=== PATIENT | male | born 1945 | race Caucasian/White ===

== ENCOUNTER 2021-11-21 11:00 | Outpatient (RCR) | payer BC, SELFPAY ==
[2021-11-19 15:35] VITALS: PULSE 85
== END 2022-02-28 07:44 | disposition home or self-care (01) ==
LOC: ANHCPREHAB 11:00
PROVIDERS: PCP Psychiatry & Neurology Neurology
DX: Z95.2 Presence of prosthetic heart valve (principal)
CPT/HCPCS: 93798

== ENCOUNTER 2022-07-17 08:30 | Outpatient (RCR) | payer BC, SELFPAY ==
[2022-04-25 11:28] VITALS: PULSE 85
== END 2022-07-17 08:51 | disposition home or self-care (01) ==
LOC: ANHCPREHAB 08:30
PROVIDERS: PCP Psychiatry & Neurology Neurology
DX: Z95.2 Presence of prosthetic heart valve (principal)
CPT/HCPCS: 93798

== ENCOUNTER 2023-04-30 08:30 | Outpatient (RCR) | payer BC, SELFPAY ==
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
--- NOTE | 2023-03-12 09:28 | OPREHPOC ---
Outpatient Therapy Plan of Care This is a Multidisciplinary Plan of Care that may contain components documented by all disciplines (PT, OT, and ST.) PT Problem 1 PT Problem #1 Knowledge Deficit PT Goal 1 Goal Pt. will be independent with a HEP addressing l.e. strength Target Visit 2 PT Problem 2 PT Problem #2 Impaired Balance PT Goal 1 Goal Pt. will improve tinetti score to 19 or greater indicating improved safety. Target Visit 12 PT Problem 3 PT Problem #3 Impaired Gait PT Goal 1 Goal Pt. will ambulate indeepndently over level surface without an AD for 6 minutes over a distance of 600' or greater. Target Visit 12 PT Problem 4 PT Problem #4 Impaired Functional Mobil PT Goal 1 Goal Pt. will be able to maintain standing on airex foam for 2 minutes without LOB or handhold indicating improve somatosensory condition for safety with IADL's. Target Visit 12
--- NOTE | 2023-04-01 11:58 | PTOPEVAL1 ---
Assessment and note entered by [facility] Evaluation Information Assessment Status Progress Diagnosis imbalance Onset 07/24/22 Subjective Information Pt. reports that he is doing much better. he notices that he is more stable on his feet. He states that he was able to walk through the grocery store yesterday, which had been difficult for him in the past. he notices that he still has trouble with described low light situations, especially if he has to get up in the middle of the night. Reported Pain Level Pain Score 0: Self Report Assessment PT Clinical Summary Pt. has attended a total of 9 treatment sessions. In this time he has demonstrated improvement in his endurance, strength, functional mobility and balance. Despite these improvements the pt. continues to present with high fall risk and gait impairments. Continued skilled PT is indicated in order to improve these areas to allow for improved safety and efficiency with IADL performance. Plan of Care Interventions Gait Training,Manual Therapy,Neuro Re-education, Patient/Caregiver Educati,Therapeutic Activities, Therapeutic Exercise PT Services Indicated Yes Treatment Frequency and Continue skilled PT focusing on improving balance, Duration strength and endurance 3x/week x 3 weeks. These treatments will address the objective and functional deficits as defined above. The patient will be advanced safely and appropriately in order for the patient to progress towards his/her prior level of function. Additional exercises will be introduced and as well as a comprehensive home exercise program upon discharge, if needed, ?to ensure carryover of functional gains achieved in the clinic. This treatment plan has been reviewed and agreement upon by the patient.
--- NOTE | 2023-04-01 12:00 | OPREHPOC ---
Outpatient Therapy Plan of Care This is a Multidisciplinary Plan of Care that may contain components documented by all disciplines (PT, OT, and ST.) PT Problem 1 PT Problem #1 Knowledge Deficit PT Goal 1 Goal Pt. will be independent with a HEP addressing l.e. strength Target Visit 2 Progress Met PT Problem 2 PT Problem #2 Impaired Balance PT Goal 1 Goal Pt. will improve tinetti score to 19 or greater indicating improved safety. Target Visit 12 Progress Not Met PT Problem 3 PT Problem #3 Impaired Gait PT Goal 1 Goal Pt. will ambulate indeepndently over level surface without an AD for 6 minutes over a distance of 600' or greater. Target Visit 12 Progress Partially Met Comment Pt. continues to demonstrate occasional loss of balance requiring min assist when going without the assistive device indicating need for cga without an assistive device. PT Problem 4 PT Problem #4 Impaired Functional Mobil PT Goal 1 Goal Pt. will be able to maintain standing on airex foam for 2 minutes without LOB or handhold indicating improve somatosensory condition for safety with IADL's. Target Visit 12 Progress Not Met Comment progressing towards
--- NOTE | 2023-04-30 09:58 | PTOPEVAL1 ---
Assessment and note entered by [facility] Evaluation Information Assessment Status Progress Diagnosis imbalance Onset 07/24/22 Subjective Information Pt. reports that he is continuing to get better. he denies any recent falls. He still notes that he feels unsteady without his AD. He states that he noticed he was able to walk through the grocery store, but still needs to hold onto the cart. he would like to continue to discontinue use of his walker and be able to complete steps more safely. Reported Pain Level Pain Score 0: Self Report Assessment PT Clinical Summary Mr. Sparrow has currently attended at toal of 18 treatments sessions. He demonstrates improvements in distance with ambulation and improved tinetti score since initial evaluation. Note that compared to the previous progress note pt. objective data is improving, however not as rapidly as the previous. Discussed with pt. decreasing his current frequency to allow for more responsibility to be on the pt. to complete home activities. He continues to have difficulty without the AD for long distance and fatigues easily. We will continue skilled PT in order to continue transition to ambulation without an AD. Plan of Care Interventions Gait Training,Neuro Re-education,Patient/Caregiver Educati,Therapeutic Activities,Therapeutic Exercise PT Services Indicated Yes Treatment Frequency and Continue 2x/week x 8 visits Duration These treatments will address the objective and functional deficits as defined above. The patient will be advanced safely and appropriately in order for the patient to progress towards his/her prior level of function. Additional exercises will be introduced and as well as a comprehensive home exercise program upon discharge, if needed, ?to ensure carryover of functional gains achieved in the clinic. This treatment plan has been reviewed and agreement upon by the patient.
--- NOTE | 2023-05-14 09:16 | PCPTNOTE ---
Patient called & cancelled scheduled appointment this date due to being out of town.
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
== END 2023-05-18 10:16 | disposition expired ==
LOC: ANHPT 08:30
PROVIDERS: PCP Psychiatry & Neurology Neurology
DX: R26.89 Other abnormalities of gait and mobility (principal)
CPT/HCPCS: 97110; 97112; 97161; 97530; 97750; 99199